=== PATIENT | male | born 1980 | race Two or more races ===

== ENCOUNTER 2018-11-26 14:50 | Outpatient (CLI) | payer BC | END 2018-11-26 23:59 | disposition home or self-care (01) | LOC: WOU 14:50 | PROVIDERS: ATTEND Surgery | DX: Z48.815 Encounter for surgical aftercare following surgery on the digestive system (principal); Z98.890 Other specified postprocedural states; G89.18 Other acute postprocedural pain | CPT/HCPCS: G0463 ==